=== PATIENT | female | born 1940 | race Caucasian/White ===

== ENCOUNTER → 2017-07-12 | Outpatient (CLI) | payer MEDICARE, BC | END | disposition home or self-care (01) | LOC: HKI 11:30 | DX: M17.0 Bilateral primary osteoarthritis of knee (principal) | CPT/HCPCS: 73562; 73562-50 ==

== ENCOUNTER → 2017-08-16 | Outpatient (CLI) | payer MEDICARE, BC | END | disposition home or self-care (01) | LOC: HKI 10:26 | DX: Z01.818 Encounter for other preprocedural examination (principal); M17.11 Unilateral primary osteoarthritis, right knee | CPT/HCPCS: G0463 ==

== ENCOUNTER 2017-08-26 05:48 | Observation (INO) | payer MEDICARE, BC ==
[2017-08-26] MEDS ORDERED: CEFAZOLIN 1 GM INJ (07:00)
[2017-08-26] MEDS ORDERED: LIDOCAINE 2% (SDV) 5 ML INJ (07:00)
[2017-08-26] MEDS: METOPROLOL 50 MG TAB PO (08:16)
[2017-08-26] MEDS: LACTATED RINGER'S 1,000 ML IV (08:30)
[2017-08-26] MEDS ORDERED: BUPIVACAINE 0.75%/DEXT (SPINAL) 2 ML INJ (09:07)
[2017-08-26] MEDS ORDERED: EPINEPHrine 1 MG INJ (09:08)
[2017-08-26] MEDS ORDERED: ROPIVACAINE 0.5 % 30 ML VIAL (09:09)
[2017-08-26] MEDS ORDERED: FENTAnyl 50 MCG/ML VIAL (09:17)
[2017-08-26] MEDS ORDERED: PROPOFOL 20 ML (09:17)
[2017-08-26] MEDS ORDERED: MIDAZOLAM 1 MG/ML 2 ML INJ (09:18)
[2017-08-26] MEDS ORDERED: MAGNESIUM HYDROXIDE 30ML CUP PO (09:30)
[2017-08-26] MEDS ORDERED: DIPHENHYDRAMINE 50 MG INJ IV ×3 (09:30→11:30)
[2017-08-26] MEDS ORDERED: NA PHOSPHATE/BIPHOS 133 ML ENEMA PR (09:30)
[2017-08-26] MEDS ORDERED: oxyCODONE 5 MG TAB PO ×2 (09:30)
[2017-08-26] MEDS: CEFAZOLIN 2 GM/50 ML (PMX) 50 ML (FOR WT < 120 KG) IVPB (09:30)
[2017-08-26] MEDS ORDERED: BISACODYL 10 MG SUPP PR (09:30)
[2017-08-26] MEDS ORDERED: ZOLPIDEM 5 MG TAB PO ×2 (09:30→21:00)
[2017-08-26] MEDS ORDERED: NALOXONE (0.4 MG/ML) INJ IV ×2 (09:30→11:30)
[2017-08-26] MEDS ORDERED: SENNA/DOCUSATE NA (8.6MG/50MG) TAB PO (09:30)
[2017-08-26] MEDS: TRANEXAMIC ACID 1,000 MG in D5W 100 ML AT INCISION X1 IVPB (09:35)
[2017-08-26] MEDS: POLYMYXIN B 500000 UNIT INJ (09:51)
[2017-08-26] MEDS: BACITRACIN 50000 UNITS INJ (09:51)
[2017-08-26] MEDS: POLYMYXIN/BACITRACIN 1L IRRIG (09:52)
[2017-08-26] MEDS: TRANEXAMIC ACID 1,000 MG in D5W 100 ML AT CLOSURE X1 IVPB (09:54)
[2017-08-26] MEDS ORDERED: BACITRACIN 0.9 GM OINT (10:50)
[2017-08-26] MEDS ORDERED: ONDANSETRON 4 MG INJ (11:02)
[2017-08-26] MEDS: DEXAMETHASONE 4 MG/ML 1 ML INJ IV (11:15)
[2017-08-26] MEDS: ONDANSETRON 4 MG INJ IV ×4 (11:15→20:41)
[2017-08-26] MEDS ORDERED: FENTAnyl 50 MCG/ML VIAL IV ×2 (11:30)
[2017-08-26] MEDS ORDERED: HYDROmorphONE 0.5 MG/0.5 ML SYG IV ×2 (11:30)
[2017-08-26] MEDS ORDERED: MEPERIDINE 25 MG INJ IV (11:30)
[2017-08-26] MEDS ORDERED: HYDROmorphONE 1 MG/5 ML IV SYRINGE IV ×2 (11:30)
[2017-08-26] MEDS ORDERED: hydrALAzine 20 MG INJ IV (11:30)
[2017-08-26] MEDS ORDERED: ONDANSETRON 4 MG INJ IV (11:30)
[2017-08-26] MEDS ORDERED: LABETALOL HCL 20MG INJ IV (11:30)
[2017-08-26] MEDS: CEFAZOLIN 1 GM/50 ML (PMX) 50 ML IVPB ×2 (11:58→17:43)
[2017-08-26] MEDS: DOCUSATE SODIUM 100 MG CAP PO (11:59)
[2017-08-26] MEDS: LANSOPRAZOLE 30 MG CAP PO (12:19)
[2017-08-26] MEDS: ACETAMINOPHEN 1000MG/100ML IV 100 ML IVPB (12:30)
[2017-08-26] MEDS: oxyCODONE 5 MG TAB PO (13:15)
[2017-08-26] MEDS: SOD CHLORIDE 0.9% 1,000 ML IV ×2 (13:20→21:51)
[2017-08-26] MEDS: METOPROLOL (XL) 50 MG TAB PO ×2 (14:30→21:50)
[2017-08-26] MEDS: VALSARTAN 160 MG TAB PO ×2 (14:56→20:32)
[2017-08-26] MEDS: GABAPENTIN 100 MG CAP PO ×2 (20:34→21:00)
[2017-08-26] MEDS: ATORVASTATIN 20 MG TAB PO (20:35)
[2017-08-26] MEDS: CELECOXIB 100 MG CAP PO (21:00)
[2017-08-27] MEDS: CEFAZOLIN 1 GM/50 ML (PMX) 50 ML IVPB (02:06)
[2017-08-27] MEDS: ONDANSETRON 4 MG INJ IV ×2 (03:17→11:49)
[2017-08-27 05:22] LABS: ADD MAN DIFF? NO
[2017-08-27 05:33] LABS: BASOPHILS % 0.3 % (0.0-2.0); EOSINOPHILS % 0.1 % (0.0-7.0); HEMATOCRIT 31.5 % (37.0-47.0); HEMOGLOBIN 9.8 g/dl (12.0-16.0); LYMPHOCYTES # 0.9 10^3/ul (0.8-2.9); LYMPHOCYTES % 12.5 % (15.0-51.0); MEAN CORPUSCULAR HGB CONC 31.1 g/dl (32.0-37.0); MEAN PLATELET VOLUME 9.7 fl (7.4-10.4); MONOCYTE # 0.6 10^3/ul (0.3-0.9); MONOCYTES % 8.1 % (0.0-11.0); NEUTROPHIL # 5.6 10^3/ul (1.6-7.5); NEUTROPHILS % 78.7 % (39.0-77.0); PLATELET COUNT 200 10^3/UL (140-415); RED CELL DISTRIBUTION WIDTH 14.4 % (11.5-14.5)
[2017-08-27 05:33] LABS: WHITE BLOOD COUNT 7.1 10^3/ul (4.8-10.8)
[2017-08-27 05:46] LABS: ANION GAP 12 (8-16)
[2017-08-27 05:48] LABS: BLOOD UREA NITROGEN 10 mg/dl (7-20); CALCIUM 8.6 mg/dl (8.4-10.2); CARBON DIOXIDE 27 mmol/L (21-31); CHLORIDE 107 mmol/L (97-110); CREATININE 0.67 mg/dl (0.44-1.00); GLUCOSE 111 mg/dl (70-220); SODIUM 141 mmol/L (135-144)
[2017-08-27] MEDS: BETHANECHOL 25 MG TAB PO (06:53)
[2017-08-27] MEDS: LACTATED RINGER'S 1,000 ML IV (08:30)
[2017-08-27 08:38] LABS: ADD UMIC YES; UR ASCORBIC ACID NEGATIVE (NEGATIVE); UR BILIRUBIN (Dip) NEGATIVE (NEGATIVE); UR BLOOD (Dip) 2+ mg/dL (NEGATIVE); UR CLARITY CLEAR (CLEAR); UR COLOR YELLOW (YELLOW); UR GLUCOSE (Dip) NEGATIVE (NEGATIVE); UR KETONES (Dip) NEGATIVE (NEGATIVE); UR LEUKOCYTE ESTERASE (Dip) NEGATIVE Leu/ul (NEGATIVE); UR NITRITE (Dip) NEGATIVE (NEGATIVE); UR RBC 1 /HPF (0-5); UR SPECIFIC GRAVITY (Dip) 1.013 (1.003-1.030); UR TOTAL PROTEIN (Dip) NEGATIVE (NEGATIVE); UR UROBILINOGEN (Dip) NEGATIVE (NEGATIVE); UR WBC 1 /HPF (0-5)
[2017-08-27] MEDS ORDERED: LORATADINE 10 MG TAB PO (09:00)
[2017-08-27] MEDS: FERROUS FUMARATE (SR) TAB PO ×2 (09:48→21:39)
[2017-08-27] MEDS: GABAPENTIN 100 MG CAP PO ×3 (09:48→21:38)
[2017-08-27] MEDS: DOCUSATE SODIUM 100 MG CAP PO ×2 (09:48→21:39)
[2017-08-27] MEDS: CELECOXIB 100 MG CAP PO ×2 (09:48→21:39)
[2017-08-27] MEDS: oxyCODONE 5 MG TAB PO (09:49)
[2017-08-27] MEDS: RIVAROXABAN 10 MG TABLET PO (09:49)
[2017-08-27] MEDS: CHOLECALCIFEROL 2,000 UNIT CAP PO (09:49)
[2017-08-27] MEDS: SOD CHLORIDE 0.9% 1,000 ML IV ×2 (10:21→22:51)
[2017-08-27] MEDS: VALSARTAN 160 MG TAB PO ×2 (13:52→21:40)
[2017-08-27] MEDS: METOPROLOL (XL) 50 MG TAB PO ×2 (13:53→21:40)
[2017-08-27] MEDS: KETOROLAC 15 MG INJ IV (18:20)
[2017-08-27] MEDS: ATORVASTATIN 20 MG TAB PO (21:39)
[2017-08-28 04:56] LABS: ADD MAN DIFF? NO
[2017-08-28 05:04] LABS: BASOPHILS % 0.6 % (0.0-2.0); EOSINOPHILS # 0.1 10^3/ul (0.0-0.5); EOSINOPHILS % 2.2 % (0.0-7.0); HEMATOCRIT 30.4 % (37.0-47.0); HEMOGLOBIN 9.4 g/dl (12.0-16.0); LYMPHOCYTES % 16.3 % (15.0-51.0); MEAN CORPUSCULAR HEMOGLOBIN 27.6 pg (29.0-33.0); MEAN CORPUSCULAR HGB CONC 30.9 g/dl (32.0-37.0); MEAN CORPUSCULAR VOLUME 89.1 fl (82.0-101.0); MEAN PLATELET VOLUME 9.7 fl (7.4-10.4); MONOCYTE # 0.6 10^3/ul (0.3-0.9); MONOCYTES % 8.9 % (0.0-11.0); NEUTROPHIL # 4.5 10^3/ul (1.6-7.5); NEUTROPHILS % 71.7 % (39.0-77.0); PLATELET COUNT 199 10^3/UL (140-415); RED BLOOD COUNT 3.41 10^6/ul (4.20-5.40); RED CELL DISTRIBUTION WIDTH 14.6 % (11.5-14.5)
[2017-08-28 05:04] LABS: WHITE BLOOD COUNT 6.3 10^3/ul (4.8-10.8)
[2017-08-28 05:15] LABS: ANION GAP 12 (8-16); BLOOD UREA NITROGEN 14 mg/dl (7-20); CALCIUM 8.6 mg/dl (8.4-10.2); CARBON DIOXIDE 27 mmol/L (21-31); CHLORIDE 105 mmol/L (97-110); CREATININE 0.83 mg/dl (0.44-1.00); GLUCOSE 86 mg/dl (70-220); POTASSIUM 3.9 mmol/L (3.5-5.1); SODIUM 140 mmol/L (135-144)
[2017-08-28] MEDS: PANTOPRAZOLE (EC) 40 MG TAB PO (06:53)
[2017-08-28] MEDS: GABAPENTIN 100 MG CAP PO (08:21)
[2017-08-28] MEDS: CHOLECALCIFEROL 2,000 UNIT CAP PO (08:21)
[2017-08-28] MEDS: FERROUS FUMARATE (SR) TAB PO (08:22)
[2017-08-28] MEDS: DOCUSATE SODIUM 100 MG CAP PO (08:22)
[2017-08-28] MEDS: CELECOXIB 100 MG CAP PO (08:23)
[2017-08-28] MEDS: VALSARTAN 160 MG TAB PO (08:23)
[2017-08-28] MEDS: RIVAROXABAN 10 MG TABLET PO (08:23)
[2017-08-28] MEDS: METOPROLOL (XL) 50 MG TAB PO (08:24)
[2017-08-28] MEDS: LACTATED RINGER'S 1,000 ML IV (08:24)
[2017-08-28] MEDS: KETOROLAC 15 MG INJ IV (09:32)
[2017-08-28] MEDS: SOD CHLORIDE 0.9% 1,000 ML IV (10:39)
== END 2017-08-28 13:55 | disposition home health service (06) ==
LOC: REC 05:48 → MS1 12:40
DX: M17.11 Unilateral primary osteoarthritis, right knee (principal); I10 Essential (primary) hypertension; E78.5 Hyperlipidemia, unspecified; E55.9 Vitamin D deficiency, unspecified; Z88.6 Allergy status to analgesic agent
CPT/HCPCS: 27447; 73560; 80048; 81001; 85025; 86850; 86900; 86901; 87081; 87086; 88304; 88311; 97110; 97116; 97162; 97165; 97530; 97535; 99217

== ENCOUNTER → 2017-09-06 | Outpatient (CLI) | payer MEDICARE, BC | END | disposition home or self-care (01) | LOC: HKI 10:25 | DX: Z09 Encounter for follow-up examination after completed treatment for conditions other than malignant neoplasm (principal); M25.561 Pain in right knee; Z96.651 Presence of right artificial knee joint | CPT/HCPCS: 73560; 73560-RT ==

== ENCOUNTER → 2017-10-04 | Outpatient (CLI) | payer MEDICARE, BC | END | disposition home or self-care (01) | LOC: HKI 10:43 | DX: Z09 Encounter for follow-up examination after completed treatment for conditions other than malignant neoplasm (principal); Z96.651 Presence of right artificial knee joint | CPT/HCPCS: 73560; 73560-RT ==

== ENCOUNTER → 2017-11-22 | Outpatient (CLI) | payer MEDICARE, BC | END | disposition home or self-care (01) | LOC: HKI 10:28 | DX: Z47.1 Aftercare following joint replacement surgery (principal); Z96.651 Presence of right artificial knee joint | CPT/HCPCS: 73560; 73560-RT ==

== ENCOUNTER → 2018-02-07 | Outpatient (CLI) | payer MEDICARE, BC | END | disposition home or self-care (01) | LOC: HKI 10:30 | DX: M25.561 Pain in right knee (principal); R22.41 Localized swelling, mass and lump, right lower limb; Z96.651 Presence of right artificial knee joint | CPT/HCPCS: 73560; 73560-RT ==